=== PATIENT | female | born 1940 | race Caucasian/White ===

== ENCOUNTER 2017-01-07 17:05 | Emergency (ER) | END 2017-01-08 02:28 | disposition home or self-care (01) | DX: R11.10 Vomiting, unspecified (principal); I10 Essential (primary) hypertension; E03.9 Hypothyroidism, unspecified | CPT/HCPCS: 36415; 71010; 74176; 80053; 81001; 83690; 84484; 85025; 93005; 96374; 99285; J2405; J7040 ==

== ENCOUNTER 2017-12-12 19:45 | Emergency (ER) | END 2017-12-12 23:41 | disposition home or self-care (01) ==